=== PATIENT | male | born 1960 | race Caucasian/White ===

== ENCOUNTER → 2018-06-23 06:21 | Outpatient (CLI) | payer OTHER, SELFPAY ==
--- NOTE | 2018-06-23 | DI.MRI.S_ITS ---
PROCEDURE: MR LUMBAR SPINE WO CON INDICATIONS: NECK BACK PAIN TECHNIQUE: Noncontrast sagittal T1 spin echo and T2 fast echo, sagittal STIR, axial T1 and T2 fast spin echo through the lumbar spine. In cases with scoliosis, additional coronal T2 fast spin echo may be performed. COMPARISON: [facility], MR, MR CERVICAL SPINE WO CON, 06/23/2018, 6:39. [facility], CR, L-SPINE 2-3 VIEWS, 01/16/2015, 7:25. [facility], MR, L-SPINE WITHOUT CONTRAST, 09/09/2015, 12:45. [facility], CR, THORACIC SPINE 3 VIEWS, 01/16/2015, 7:25. FINDINGS: Image quality: Excellent. Alignment and Curvature: There is normal bony alignment. Bone Marrow: Marrow is of normal overall signal. No acute vertebral body compression fractures. Spinal Cord: Conus medullaris terminates at the L1 level. Visualized cord demonstrates normal signal and size. Paraspinous Soft Tissues: No paravertebral masses. T12-L1: Moderate loss of disc height is seen. Loss of disc signal is seen. Mild disc bulge is seen, which is eccentric the right side. There is moderate right-sided and minimal left-sided neural foraminal narrowing seen. Lgav-xw-xmsgyyqt central canal narrowing is seen, as on series 5 image 5. When comparison is made with the prior examination, these findings are similar. L1-L2: Moderate loss of disc height is seen. Loss of disc signal is seen. Mild generalized disc bulge is seen. There is mild to moderate left-sided and mild right-sided neural foraminal narrowing seen. Minimal to mild central canal narrowing is seen. When comparison is made with the prior examination, these findings are similar. L2-L3: Rfdq-fp-kgckpiub loss of disc height and disc signal are seen. Moderate generalized disc bulge is seen. Mild facet joint hypertrophy is seen. There is mild to moderate right-sided and moderate left-sided neural foraminal narrowing seen. Moderate central canal narrowing is seen. These imaging findings have progressed compared to the prior study. L3-L4: Mild loss of disc height is seen. Loss of disc signal is seen. Moderate disc bulge is seen, which is eccentric to the right. Mild facet joint hypertrophy is seen. There is mild to moderate bilateral neural foraminal narrowing seen. These imaging findings have progressed compared to the prior study. L4-L5: Mild loss of disc height is seen. Loss of disc signal is seen. Along the posterior aspect of the annulus fibrosis, there is a focal annular fissure seen, as on series 2 image 10. There is mild to moderate disc bulge, which is eccentric to the right. Mild facet joint hypertrophy is seen. At least moderate bilateral neural foraminal narrowing is seen. Mild central canal narrowing is seen. These imaging findings have progressed compared to the prior study. L5-S1: Moderate loss of disc height is seen. Loss of disc signal is seen. Ixtt-id-nfzkqojd disc bulge is seen, which is eccentric to the right. Mild facet joint hypertrophy is seen. Moderate to severe bilateral neural foraminal narrowing is seen, left worse than right. There is a degree of impingement seen upon the exiting nerve roots. No central canal narrowing is seen. When comparison is made with the prior examination, these findings are similar. IMPRESSION: Multiple levels of lumbar spine degenerative changes are seen, which are overall progressed compared to 2016. An annular fissure seen posteriorly at the L4-L5 level. Dictated by: Delonte Beard M.D. on 06/23/2018 at 7:53 Approved by: Delonte Beard M.D. on 06/23/2018 at 8:00
--- NOTE | 2018-06-23 | DI.MRI.S_ITS ---
PROCEDURE: MR CERVICAL SPINE WO CON INDICATIONS: NECK BACK PAIN TECHNIQUE: Noncontrast sagittal T1 spin echo and T2 fast spin echo, sagittal STIR, foraminal oblique sagittal T2 fast spin echo, and axial gradient echo or T2 fast spin echo through the cervical spine. COMPARISON: [facility], , CERVICAL SPINE 2 OR 3 VIEWS, 01/16/2015, 7:25. [facility], , C-SPINE WITHOUT CONTRAST, 09/09/2015, 12:21. [facility], , SPINE CERVICAL MIN 4VW, 11/03/2016, 15:43. FINDINGS: Image quality: Excellent. Alignment and Curvature: : There is grade 1 anterolisthesis of C2 on C3 and C3 on C4.. Bone Marrow: Marrow demonstrates normal overall signal. Spinal Cord: Visualized spinal cord has normal size and signal. No cerebellar tonsillar herniation. Paraspinous Soft Tissues: No paravertebral masses. Prevertebral soft tissues are normal in thickness. C2-C3: Preserved disc height. Mild disc desiccation. There is mild posterior disc bulge. The central canal is patent. No foraminal stenosis. C3-C4: Mild loss of disc height. Mild disc desiccation. There is diffuse posterior disc bulge and disc osteophyte complex. Wjqj-bo-jglhugmn bilateral facet arthropathy. The central canal is mildly narrowed. Moderate bilateral foraminal stenosis. No significant change from last exam. C4-C5: Moderate loss of disc height. Mild disc desiccation. There is diffuse posterior disc bulge and disc-osteophyte complex. Rcvh-dk-myxrqibf bilateral facet arthropathy. The central canal is moderately narrowed. Severe bilateral foraminal stenosis. There is increased central canal and foraminal stenosis compared to the last exam on 09/09/2015. C5-C6: Moderate loss of disc height. Mild disc desiccation. There is diffuse posterior disc bulge and disc-osteophyte complex. Moderate left and mild right bilateral facet arthropathy. The central canal is moderately narrowed. Severe bilateral foraminal stenosis. There is increased central canal and foraminal stenosis compared to the last exam on 09/09/2015. C6-C7: Wefnmyks-dq-dhexuu loss of disc height. Mild disc desiccation. There is diffuse posterior disc bulge and disc-osteophyte complex. Aapd-dt-gogotnin bilateral facet arthropathy. The central canal is mildly narrowed. Severe bilateral foraminal stenosis. There is increased central canal and foraminal stenosis compared to the last exam on 09/09/2015. C7-T1: Normal appearance. IMPRESSION: 1. Progression of multilevel degenerative disc disease and facet arthropathy as described. 2. Moderate central canal stenosis at C4-C5 and C5-C6. 3. Severe foraminal stenosis at C4-C5 bilaterally, C5-C6 bilaterally and C6-C7 bilaterally. Dictated by: Therese Short M.D. on 06/23/2018 at 9:19 Approved by: Therese Short M.D. on 06/23/2018 at 9:29
== END ==
PROVIDERS: Family Provider Family Medicine; PCP Family Medicine; Visit Provider Family Medicine
DX: M54.9 Dorsalgia, unspecified (principal); M47.816 Spondylosis without myelopathy or radiculopathy, lumbar region; M47.817 Spondylosis without myelopathy or radiculopathy, lumbosacral region; M47.812 Spondylosis without myelopathy or radiculopathy, cervical region; M50.31 Other cervical disc degeneration, high cervical region; M48.02 Spinal stenosis, cervical region
CPT/HCPCS: 72141; 72148

== ENCOUNTER 2018-11-08 08:17 | Outpatient (CLI) | payer OTHER, SELFPAY ==
[2018-11-08] VITALS (8 sets, daily range): BP systolic 109–126; BP diastolic 66–80; PULSE 67–86; RESP 16; TEMP 36.3; O2SAT 97–100
--- NOTE | 2018-11-08 08:18 | DI.RAD.S_ITS ---
PROCEDURE: PAIN L INTERLAMINAR/CAUDAL INJ INDICATIONS: RADICULOPATHY FINDINGS: Fluoroscopic spot filming was performed to verify placement of spinal needles at the L4-L5 level(s), as labeled on the films. Appropriate location(s) of the needle tip(s) was confirmed by injection of iodinated contrast. Dictated by: Ronaldo Peralta M.D. on 11/08/2018 at 11:16 Approved by: Ronaldo Peralta M.D. on 11/08/2018 at 11:16
--- NOTE | 2018-11-08 10:23 | PM.PROC.1 ---
Procedures Date/Time Date of procedure: 11/08/18 Time of procedure: 10:24 General Procedure description: PROVIDER: Bebeto Watson DO Operative Note PREOP DIAGNOSIS 1. HNP WITH RADICULAR FEATURES, 2. MULTILEVEL CENTRAL STENOSIS, POST OP DIAGNOSIS 1. HNP WITH RADICULAR FEATURES, 2. MULTILEVEL CENTRAL STENOSIS PROCEDURES 1. FLUORSCOPICALLY GUIDED CONTRAST CONTROLLED INTERLAMINAR EPIDURAL STEROID INJECTION -L4/5 PHYSICIAN: Bebeto Watson DO INDICATIONs: Torsten is referred by Dr. Moore for treatment of Bilateral Foraminal Stenosis R>L LE symptoms. FINDINGS Multilevel Central Spinal Stenosis with Nerve Root Compression DESCRIPTION OF PROCEDURE Fluoroscopically guided, contrast-controlled L4/5 translaminar epidural steroid injection. Following review of allergy and review of potential side effects and complications, including, but not necessarily limited to, infection, allergic reaction, local tissue breakdown, temporary as well as permanent nerve injury, paralysis, stroke and possible , the patient indicated that the patient understood and agreed to proceed. An informed consent document was signed by the patient, witnessed by a nurse, and placed in the patient's chart. Additionally, other treatment options including modalities, medications, and physical therapy were reviewed with the patient. After review of previous anaesthesic history and IV conscious sedation the patient was deemed safe to proceed with todays procedure with IV conscious sedation as ASA class II designation. Safety time-out was performed to confirm patient ID, procedure to be performed and site of procedure. IV sedation was accomplished with a combination of 2mg of Versed and 50mcg of Fentanyl was administered by the RN after DO order, titrated to patient comfort during the course of the procedure while the patient remained responsive to all verbal commands In the prone position, following sterile prep and drape of the lumbar region, the L4/5 translaminar space was identified fluoroscopically. The skin was anesthetized via a 25-gauge, 1.5-inch needle with 1% lidocaine solution. At this point, a 22-gauge short bevel spinal needle was atraumatically introduced and advanced under fluoroscopic guidance into the region of the L4/5 translaminar space. Depth was confirmed on lateral view. Radiological data, including multiple fluoroscopic views of the lumbar spine, reveal a spinal needle at the L4/5 translaminar space. Lateral views then show placement of the needle in the epidural space. Subsequent views show contrast material flowing superiorly and inferiorly in the epidural space. No vascular or intrathecal uptake is observed. At this point, using loss of resistance technique with saline and air, the epidural space was entered. This was confirmed following negative aspiration with injection of approximately 1.5 cc of Isovue 200, showing excellent epidural flow without vascular or intrathecal uptake. At this point, 1 cc of 1% lidocaine solution combined with 3cc or 20mg of dexamethasone and 6mg Fentanyl was injected without incident. The patient tolerated the procedure well without signs or symptoms of complications prior to transfer to the recovery area continued monitoring without incident. The patient was then transferred to the recovery area where they were observed for an appropriate period of time after the injection. The patient reported a VAS score of 6 prior to the procedure and a post-procedure VAS of 0. Total Fluoroscopy Time: 11.8 seconds, 8.99 mGy Total Conscious Sedation Time: 24min POST OP INSTRUCTIONS The patient was provided a Pain Log to continue to record their response to the target-specific procedure prior to follow-up visit with their referring physician. Additionally, specific post-injection care instructions and a contact number to our office were provided if concerns arise regarding possible complications associated with the procedure are suspected. Bebeto Watson, Complications: none
--- NOTE | 2018-11-08 10:28 | P.PCN_ITS ---
Procedures Date/Time Date of procedure: 11/08/18 Time of procedure: 10:24 General Procedure description: PROVIDER: Bebeto Watson DO Operative Note PREOP DIAGNOSIS 1. HNP WITH RADICULAR FEATURES, 2. MULTILEVEL CENTRAL STENOSIS, POST OP DIAGNOSIS 1. HNP WITH RADICULAR FEATURES, 2. MULTILEVEL CENTRAL STENOSIS PROCEDURES 1. FLUORSCOPICALLY GUIDED CONTRAST CONTROLLED INTERLAMINAR EPIDURAL STEROID INJECTION -L4/5 PHYSICIAN: Bebeto Watson DO INDICATIONs: Torsten is referred by Dr. Moore for treatment of Bilateral Foraminal Stenosis R>L LE symptoms. FINDINGS Multilevel Central Spinal Stenosis with Nerve Root Compression DESCRIPTION OF PROCEDURE Fluoroscopically guided, contrast-controlled L4/5 translaminar epidural steroid injection. Following review of allergy and review of potential side effects and complications, including, but not necessarily limited to, infection, allergic reaction, local tissue breakdown, temporary as well as permanent nerve injury, paralysis, stroke and possible , the patient indicated that the patient understood and agreed to proceed. An informed consent document was signed by the patient, witnessed by a nurse, and placed in the patient's chart. Additionally, other treatment options including modalities, medications, and physical therapy were reviewed with the patient. After review of previous anaesthesic history and IV conscious sedation the patient was deemed safe to proceed with todays procedure with IV conscious sedation as ASA class II designation. Safety time-out was performed to confirm patient ID, procedure to be performed and site of procedure. IV sedation was accomplished with a combination of 2mg of Versed and 50mcg of Fentanyl was administered by the RN after DO order, titrated to patient comfort during the course of the procedure while the patient remained responsive to all verbal commands In the prone position, following sterile prep and drape of the lumbar region, the L4/5 translaminar space was identified fluoroscopically. The skin was anest hetized via a 25-gauge, 1.5-inch needle with 1% lidocaine solution. At this point, a 22-gauge short bevel spinal needle was atraumatically introduced and advanced under fluoroscopic guidance into the region of the L4/5 translaminar space. Depth was confirmed on lateral view. Radiological data, including multiple fluoroscopic views of the lumbar spine, reveal a spinal needle at the L4/5 translaminar space. Lateral views then show placement of the needle in the epidural space. Subsequent views show contrast material flowing superiorly and inferiorly in the epidural space. No vascular or intrathecal uptake is observed. At this point, using loss of resistance technique with saline and air, the epidural space was entered. This was confirmed following negative aspiration with injection of approximately 1.5 cc of Isovue 200, showing excellent epidural flow without vascular or intrathecal uptake. At this point, 1 cc of 1% lidocaine solution combined with 3cc or 20mg of dexamethasone and 6mg Fentanyl was injected without incident. The patient tolerated the procedure well without signs or symptoms of complications prior to transfer to the recovery area continued monitoring wi thout incident. The patient was then transferred to the recovery area where they were observed for an appropriate period of time after the injection. The patient reported a VAS score of 6 prior to the procedure and a post- procedure VAS of 0. Total Fluoroscopy Time: 11.8 seconds, 8.99 mGy Total Conscious Sedation Time: 24min POST OP INSTRUCTIONS The patient was provided a Pain Log to continue to record their response to the target-specific procedure prior to follow-up visit with their referring physician. Additionally, specific post-injection care instructions and a contact number to our office were provided if concerns arise regarding possible complications associated with the procedure are suspected. Bebeto Watson DO Complications: none
[2018-11-08] MEDS: MIDAZOLAM 5 MG/5 ML VIAL IV (10:31)
[2018-11-08] MEDS: fentaNYL 100 MCG/2 ML INJ 50 MCG IV (10:32)
[2018-11-08] MEDS: IOPAMIDOL 15 ML VIAL 3 ML INJ (10:38)
[2018-11-08] MEDS: BETAMETHASONE 30 MG/5 ML MDV 12 MG INJ (10:39)
[2018-11-08] MEDS: DEXAMETHASONE 10 MG/ML VIAL 20 MG INJ (10:39)
[2018-11-08] MEDS: BUPIVACAINE 0.25% (PF) VIAL 2 ML INJ (10:39)
--- NOTE | 2018-11-08 10:41 | PC.NURSE ---
ASSISTING PT OFF TABLE AND TRANSPORTING TO POST PROC AREA IN STABLE CONDITION
--- NOTE | 2018-11-08 10:47 | PC.NURSE ---
Pt returned via wheelchair awake and alert, steady on his feet, able to move from w/c to chair with standby assist. Resumed monitoring from Kerrie HEADLEY.
== END 2018-11-08 11:24 ==
PROVIDERS: Family Provider Family Medicine; PCP Family Medicine; Visit Provider Physical Medicine & Rehabilitation
DX: M51.16 Intervertebral disc disorders with radiculopathy, lumbar region (principal); M48.061 Spinal stenosis, lumbar region without neurogenic claudication; M47.27 Other spondylosis with radiculopathy, lumbosacral region
CPT/HCPCS: 62323; 99152; J0702; J1100; J2250; J3010

== ENCOUNTER 2019-01-31 08:42 | Outpatient (CLI) | payer OTHER, SELFPAY ==
[2019-01-31] VITALS (8 sets, daily range): BP systolic 114–148; BP diastolic 62–97; PULSE 58–77; RESP 6–16; TEMP 36.2; O2SAT 96–99
--- NOTE | 2019-01-31 08:43 | DI.RAD.S_ITS ---
PROCEDURE: PAIN L/S FACET INJ/BLK 1ST TACHO COMPARISON: 11/08/2018. INDICATIONS: RADICULOPATHY FINDINGS: Fluoroscopic spot filming was performed to verify placement of spinal needles at the bilateral L3-L4 and bilateral L4-L5 level(s), as labeled on the films. Appropriate location(s) of the needle tip(s) was confirmed by injection of iodinated contrast. IMPRESSION: Bilateral L3-L4 and L4-L5 transforaminal needle placement. Dictated by: Sudhir Reeves M.D. on 01/31/2019 at 13:15 Approved by: Sudhir Reeves M.D. on 01/31/2019 at 13:16
[2019-01-31] MEDS: fentaNYL 100 MCG/2 ML INJ 50 MCG IV (09:43)
[2019-01-31] MEDS: MIDAZOLAM 5 MG/5 ML VIAL IV (09:43)
[2019-01-31] MEDS: BUPIVACAINE 0.5% (PF) VIAL 2 ML INJ (09:53)
[2019-01-31] MEDS: IOPAMIDOL 15 ML VIAL 3 ML INJ (09:53)
[2019-01-31] MEDS: BETAMETHASONE 30 MG/5 ML MDV 12 MG INJ (09:54)
[2019-01-31] MEDS: LIDOCAINE 1% 20 ML 10 ML INJ (09:54)
--- NOTE | 2019-01-31 10:05 | P.PCN_ITS ---
Procedures Date/Time Date of procedure: 01/31/19 Time of procedure: 10:05 General Procedure description: PREOP DIAGNOSIS 1. FACET ARTHROPATHY 2. AXIAL LBP 3. MULTILEVEL DDD POST OP DIAGNOSIS 1. FACET ARTHROPATHY 2. AXIAL LBP 3. MULTILEVEL DDD PROCEDURES 1. FLUORSCOPICALLY GUIDED CONTRAST CONTROLLED FACET JOINT INJECTIONS BILATERAL L3/4, L4/5 PHYSICIAN: Bebeto Watson DO INDICATIONS: Torsten is referred by Dr. Moore for treatment of Axial LBP FINDINGS Multilevel Facet Arthropathy with Clinically significant axial LBP DESCRIPTION OF PROCEDURE Fluoroscopically guided, contrast-controlled bilateral L3/4, L4/5 facet joint injections. Following review of allergy and review of potential side effects and complications, including, but not necessarily limited to, infection, allergic reaction, local tissue breakdown, stroke, temporary or permanent nerve injury, paralysis, and possible , the patient indicated that the patient understood and agreed to proceed. An informed consent document was signed by the patient, witnessed by a nurse, and placed in the patient's chart. Additionally, other treatment options including medications, modalities, and physical therapy were reviewed with the patient. After review of previous anaesthesic history and IV conscious sedation the patient was deemed safe to proceed with todays procedure with IV conscious sedation as ASA class II designation. Safety time-out was performed to confirm patient ID, procedure to be performed and site of procedure. IV sedation was accomplished with a combination of 2mg of Versed and 50mcg of Fentanyl was administered by the RN after DO order, titrated to patient comfort during the course of the procedure while the patient remained responsive to all verbal commands. In the prone position, following sterile prep and drape of the lumbar region, the posterior aspect of the L3/4, L4/5 facet joints were identified fluoroscopically. The skin was anesthetized via a 25-gauge 1.5-inch needle with 1% lidocaine solution into the corresponding facet joints. At this point, a 22- gauge 3.5-inch spinal needle was atraumatically introduced and advanced under fluoroscopic guidance into the corresponding facet joints. Following negative aspiration, injections of approximately 0.2-cc of Isovue 200 confirmed interarticular placement without vascular uptake. The identical procedure was then performed at the L3/4, L4/5 facet joints on the left. Radiological data, including multiple fluoroscopic views of the lumbosacral spine, reveal a spinal needle at the L3/4, L4/5 facet joints bilaterally. Subsequent views show flow of contrast material both superiorly and inferiorly within the joint space without vascular or intrathecal uptake. At this point, a total of 0.5 cc including a mixture of 0.25 cc Marcaine and 0.25 cc betamethasone was injected without complication into each of the corresponding facet joints. The patient tolerated the procedure well without signs or symptoms of complications prior to transfer to the recovery area continued monitoring without incident. The patient was then transferred to the recovery area where they were observed for an appropriate period of time after the injection. The patient reported a VAS score of 7 prior to the procedure and a post-procedure VAS of 0. Total Fluoroscopy Time: 20.3 seconds Total Conscious Sedation Time: 24min POST OP INSTRUCTIONS The patient was provided a Pain Log to continue to record their response to the target-specific procedure prior to follow-up visit with their referring physician. Additionally, specific post-injection care instructions and a contact number to our office were provided if concerns arise regarding possible complications associated with the procedure are suspected. Bebeto Watson DO Complications: none
--- NOTE | 2019-01-31 10:05 | PC.NURSE ---
Post procedure note: Time out at 0940. Medicated per providers orders. tolerated procedure well in prone position. VSS and O2 sat WNL on 2L/CHRONOGRAPH OPERATOR. Transferred from table to w/c without difficulties. Denied any unusual numbness or tingling to lower extremities. Transferred for post procedure monitoring. Handoff report given to Terri Lockwood RN at 1004
== END 2019-01-31 10:26 | disposition home or self-care (01) ==
PROVIDERS: Family Provider Family Medicine; PCP Family Medicine; Visit Provider Physical Medicine & Rehabilitation
DX: M47.816 Spondylosis without myelopathy or radiculopathy, lumbar region (principal); M54.5 Low back pain; M51.36 Other intervertebral disc degeneration, lumbar region
CPT/HCPCS: 64493; 64494; 99152; J0702; J2250; J3010

== ENCOUNTER → 2021-10-03 09:49 | Outpatient (CLI) | payer OTHER, SELFPAY ==
--- NOTE | 2021-10-03 09:55 | DI.RAD.S_ITS ---
PROCEDURE: XR CHEST 2V INDICATIONS: WHEEZING TECHNIQUE: 2 views of the chest were acquired. COMPARISON: None. FINDINGS: Surgical changes and devices: None. Lungs and pleura: Lungs are clear. No pleural effusions or pneumothorax. Mediastinum: Mediastinal contours are normal. Heart size is normal. Bones and chest wall: No suspicious bony abnormalities. Soft tissues appear unremarkable. IMPRESSION: No acute cardiopulmonary disease process. Dictated by: Vanessa Angeles MD, PhD on 10/03/2021 at 15:17 Approved by: Vanessa Angeles MD, PhD on 10/03/2021 at 15:17
[2021-10-03 10:56] LABS: COVID19 -Nasal RAPID Negative (Negative)
== END ==
PROVIDERS: Family Provider Family Medicine; PCP Family Medicine; Referring Provider Internal Medicine; Visit Provider Internal Medicine
DX: R06.2 Wheezing (principal)
CPT/HCPCS: 71046; 87635; C9803

== ENCOUNTER → 2021-10-03 09:55 | Outpatient (CLI) | payer OTHER, SELFPAY ==
--- NOTE | 2021-10-08 08:14 | PM.PFT.1 ---
Pulmonary Function Test Referral & Results Date Patient Seen: 10/03/21 Requesting provider: Stacey Moore Indication: Wheezing Results: The spirometry demonstrates an FVC of 4.67 L which is 95% of predicted. The FEV1 was measured at 3.83 L which is 103% of predicted. The FEV1/FVC ratio was 82 which is 109% of predicted. Following the administration of bronchodilator there was no appreciable change to above normal numbers. Lung volumes show an SVC of 5.23 L which is 107% of predicted. The diffusing capacity was measured at 36.74 which is 109% of predicted. The maximum voluntary ventilation was normal Interpretation: This study demonstrates normal pulmonary function
== END ==
PROVIDERS: Family Provider Family Medicine; PCP Family Medicine; Referring Provider Family Medicine; Visit Provider Family Medicine
DX: R06.2 Wheezing (principal)
CPT/HCPCS: 71046; 87635; 94060; 94726; 94729; C9803